=== PATIENT | male | born 1980 | race Caucasian/White ===

== ENCOUNTER 2018-08-15 15:16 | Emergency (ER) | payer BC, OTHER ==
[~2018-08-15] VITALS: Ht 182.9 cm; Wt 83.9 kg
[2018-08-15 16:16] VITALS: BP 131/83
== END 2018-08-15 16:16 | disposition home or self-care (01) ==
LOC: ER 15:16
DX: S60.211A Contusion of right wrist, initial encounter (principal); X50.1XXA Overexertion from prolonged static or awkward postures, initial encounter; Y92.89 Other specified places as the place of occurrence of the external cause; Y93.68 Activity, volleyball (beach) (court); Y99.8 Other external cause status